=== PATIENT | male | born 1995 | race Caucasian/White ===

== ENCOUNTER 2017-01-07 03:01 | Emergency (ER) | payer OTHER ==
[~2017-01-07] VITALS: Ht 170.2 cm; Wt 62.6 kg
[2017-01-07 03:14] VITALS: TEMP 36.9; Ht 170.2 cm; Wt 62.6 kg
[2017-01-07 03:16] VITALS: O2SAT 98
[2017-01-07 03:17] VITALS: PULSE 94
[2017-01-07 03:22] VITALS: BP 103/74
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
== END 2017-01-07 03:40 | disposition home or self-care (01) ==
LOC: C.EDB 03:05 → MERGE 03:05 → C.EDB 03:40
DX: F10.920 Alcohol use, unspecified with intoxication, uncomplicated (principal)